=== PATIENT | male | born 1985 | race Hispanic/Latino ===

== ENCOUNTER → 2024-07-05 | Outpatient (CLI) | payer OTHER ==
--- NOTE | 2024-07-06 10:32 | HMCIMG ---
LEFT KNEE RADIOGRAPHS - 2 VIEWS INDICATION: Pain COMPARISON: None FINDINGS: AP, lateral views. No fracture or dislocation identified. Mild tricompartmental left knee osteoarthropathy. No significant joint effusion is present. Overlying soft tissues appear normal. Visible portions of left femoral and left tibial hardware appear normal. Multiple surgical clips along the posteromedial left knee soft tissues. IMPRESSION: Mild tricompartmental left knee osteoarthropathy, without evidence for fracture or hardware complication.
--- NOTE | 2024-07-06 10:32 | HMCIMG ---
LEFT HIP, INCLUDING AP PELVIS, RADIOGRAPHS - 2 VIEWS INDICATION: Pain COMPARISON: None FINDINGS: Abduction view of the left hip and single AP view of the pelvis. No acute fracture or subluxation identified. Both femoral heads are well formed without osteochondral erosion or radiographic evidence for avascular necrosis. No radiopaque foreign body noted. IMPRESSION: No evidence for fracture or dislocation.
--- NOTE | 2024-07-06 10:33 | HMCIMG ---
LUMBAR SPINE RADIOGRAPHS - 2-3 VIEWS INDICATION: Back pain COMPARISON: None FINDINGS: AP, lateral views. Normal lordotic curvature of the lumbar spine is maintained. Five nonrib-bearing lumbar vertebral bodies are noted. No acute fracture or subluxation identified. Vertebral body heights are well-maintained. Severe disc height loss at the L5-S1 level. Mild to moderate anterior endplate spurring and facet disease at the same level. Mild facet disease at the L4-L5 level. Battery pack projects over the right hip and neurostimulator leads course towards the thoracic spine. Moderate stool burden. IMPRESSION: L5-S1 degenerative changes as described, without superimposed acute component.
== END | disposition home or self-care (01) ==
LOC: RAH 16:46
PROVIDERS: ATTEND Internal Medicine
DX: M17.12 Unilateral primary osteoarthritis, left knee (principal); M25.552 Pain in left hip; M25.562 Pain in left knee; M47.817 Spondylosis without myelopathy or radiculopathy, lumbosacral region; M51.372 Other intervertebral disc degeneration, lumbosacral region with discogenic back pain and lower extremity pain; G89.29 Other chronic pain
CPT/HCPCS: 72100; 73502; 73562